=== PATIENT | male | born 1975 | race Caucasian/White ===

== ENCOUNTER → 2020-01-02 09:37 | Outpatient (BNVA) | payer OTHER, SELFPAY | PROVIDERS: Family Provider Electrodiagnostic Medicine; PCP Electrodiagnostic Medicine; Visit Provider Nurse Practitioner Family | DX: B96.89 Other specified bacterial agents as the cause of diseases classified elsewhere (principal); J98.8 Other specified respiratory disorders | CPT/HCPCS: 87804 ==